=== PATIENT | female | born 1985 | race Two or more races ===

== ENCOUNTER 2018-07-20 11:00 | Emergency (ER) | payer SELFPAY ==
[~2018-07-20] VITALS: Ht 160 cm; Wt 90.7 kg
[~2018-07-20 11:00] MED LIST: LOTENSIN20 MG ORAL; MACROBID100 MG ORAL; METRONIDAZOLE500 MG ORAL; ZOFRAN4 MG ORAL
--- NOTE | 2018-07-20 11:15 | NUR ---
pt came from home to ED self ambulatory. c/o L hand pain 01/28. per pt, she tripped and landed on her hand. pt denies hitting her head. denies numbness. per pt has trouble moving her left ring and pinky finger. pt says she took 1 tylenol with codeine last night. denies use of alochol or other drugs. Addendum: 07/20/18 at 1123 by [facility] ED Nurse Note: pt came from home to ED self ambulatory. c/o L hand pain 01/28. per pt, she tripped and landed on her hand. pt denies hitting her head. denies numbness. per pt has trouble moving her left ring and pinky finger. pt says she took 1 tylenol with codeine last night. denies use of alochol or other drugs.
[2018-07-20 11:24] VITALS: BP 133/95
--- NOTE | 2018-07-20 11:27 | Emergency Room Report ---
History of Present Illness General Chief Complaint: Upper Extremity Injury Source: Patient, Medical Record Present Illness HPI Patient presents with a left hand pain. She fell yesterday and hit her ring and little finger. 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 She tried to tough it out. She took one Tylenol with codeine earlier today. She has decreased range of motion no numbness but the pain is worse at this time. Pain rated 7/10. Also scraped her L knee. Able to ambulate. No numbness. Some bruising of hand and fingers. Not . No fevers, chest pain, NVD. 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 Last Menstrual Period: 07/20/2018 Now: No : 2 Para: 0 Reviewed Nursing Documentation: PMH: Agreed; PSxH: Agreed Nursing Documentation-PMH Hx Hypertension: Yes Review of Systems All Other Systems: negative except mentioned in HPI Physical Exam Vital Signs Date Time Temp Pulse Resp B/P (MAP) Pulse Ox O2 Delivery O2 Flow Rate FiO2 07/20/18 11:07 98.4 102 15 133/95 98 Room Air Sp02 EP Interpretation: reviewed, normal General Appearance: well appearing, no apparent distress, GCS 15 Head: normocephalic, atraumatic Eyes: bilateral eye normal inspection, bilateral eye PERRL ENT: hearing grossly normal, normal voice, moist mucus membranes Neck: full range of motion, supple Respiratory: no respiratory distress, speaking full sentences Gastrointestinal: normal inspection Musculoskeletal: gait/station normal, swelling, other - Base of ring and little finger left hand with tenderness and swelling able to move distal extensor tendons. Neurologic: sensory intact, motor weakness - Due to pain Psychiatric: normal inspection, mood/affect normal Skin: other - Ecchymoses base of ring Medical Decision Making Diagnostic Impression: Primary Impression: Left finger fractures Additional Impressions: Fracture of phalanx of left little finger Qualified Codes: S62.647A - Nondisplaced fracture of proximal phalanx of left little finger, initial encounter for closed fracture Fracture of phalanx of left ring finger Qualified Codes: S62.645A - Nondisplaced fracture of proximal phalanx of left ring finger, initial encounter for closed fracture ER Course Patient presents with swelling and bruising of the left hand after trauma yesterday. Differential includes contusion,'s fracture, sprain and hematoma. X -rays are indicated. Also she'll be given Motrin. Xrays with fxs. Ulnar gutter splint applied by tech. Excellent position with improvement in pain. Neurovasc checked by me and normal. Discussed need for follow up care. Patient stable for outpatient observation and treatment. Other X-Ray Diagnostic Results Other X-Ray Diagnostic Results : X-Ray ordered: l hand # of Views/Limited Vs Complete: 3 View Indication: Pain Interpretation: no dislocation, no soft tissue swelling, other - fractures Impression: Other Electronically Signed by: Electronically signed by Vincent Aguilar MD Last Vital Signs Date Time Temp Pulse Resp B/P (MAP) Pulse Ox O2 Delivery O2 Flow Rate FiO2 07/20/18 12:34 98.4 102 15 133/95 98 Room Air Status: improved Disposition: HOME, SELF-CARE Condition: Improved Scripts Hydrocodone Bit/Acetaminophen 5-325* (NORCO 5-325*) 1 Each Tablet 1 TAB ORAL Q6H PRN for For Pain, #10 TAB 0 Refills Prov: Vincent Aguilar MD 07/20/18 Ibuprofen* (MOTRIN*) 600 Mg Tablet 600 MG ORAL Q6H PRN for For Pain, #20 TAB Prov: Vincent Aguilar MD 07/20/18 Vincent Aguilar MD Jul 20, 2018 11:27
--- NOTE | 2018-07-20 12:04 | Diagnostic Imaging Report ---
EXAM: XR Left Hand Complete, 3 or More Views CLINICAL HISTORY: TRAUMA TECHNIQUE: Frontal, lateral and oblique views of the left hand. COMPARISON: No relevant prior studies available. FINDINGS: Bones/joints: Fractures involving the proximal aspects of the fourth and fifth proximal phalanges. Soft tissues: Soft tissue swelling. IMPRESSION: Fractures involving the proximal aspects of the fourth and fifth proximal phalanges.
[2018-07-20] MEDS ORDERED: IBUPROFEN600 MG ORAL (12:12)
[2018-07-20] MEDS ORDERED: NORCO 5-325 TA1 EACH ORAL (12:31)
[2018-07-20 12:34] VITALS: BP 133/95
--- NOTE | 2018-07-20 12:35 | NUR ---
ED Nurse Note: pt dc per ED order, dc education provided. pt verbalized underestanding, id band removed, pt was instructed on how to care for a splint, vss, pt left with all belongings, pt instructed to follow with pmd if symptoms reoccur
== END 2018-07-20 12:35 | disposition home or self-care (01) ==
LOC: EMR 11:30
DX: S62.645A Nondisplaced fracture of proximal phalanx of left ring finger, initial encounter for closed fracture (principal); S62.641A Nondisplaced fracture of proximal phalanx of left index finger, initial encounter for closed fracture; W19.XXXA Unspecified fall, initial encounter; Y92.9 Unspecified place or not applicable; I10 Essential (primary) hypertension
CPT/HCPCS: 99283